=== PATIENT | female | born 1995 | race Hispanic/Latino ===

== ENCOUNTER 2018-08-26 14:23 | Emergency (ER) | payer OTHER ==
[~2018-08-26 14:23] MED LIST: FLEXERIL PO; NAPROSYN500 MG PO; NAPROXEN500 MG PO; NO
== END 2018-08-26 14:30 | disposition left against medical advice (07) | DRG 951 ==
LOC: ED 14:23 → LWOBS 14:29
DX: Z91.19 Patient's noncompliance with other medical treatment and regimen (principal)

== ENCOUNTER 2020-03-24 15:48 | Emergency (ER) | payer OTHER ==
[~2020-03-24] VITALS: Ht 160 cm; Wt 77.3 kg
[2020-03-24] MEDS ORDERED: TYLENOL500 MG PO (16:09)
[2020-03-24 16:56] LABS: HEMATOCRIT 38.1 % (37.0-47.0); HEMOGLOBIN 12.2 g/dl (12.0-16.0); NEUT# 2.01 thou/uL (2.00-7.15); RED BLOOD COUNT 4.07 mill/uL (4.20-5.60); RED CELL DISTRI WIDTH 12.8 % (11.5-15.5)
[2020-03-24 17:00] LABS: URINE BILIRUBIN - DIPSTICK NEGATIVE (NEGATIVE); URINE BLOOD DIPSTICK LARGE (NEGATIVE); URINE COLOR YELLOW; URINE GLUCOSE - DIPSTICK NEGATIVE (NEGATIVE); URINE KETONE NEGATIVE (NEGATIVE); URINE LEUK ESTERASE NEGATIVE (NEGATIVE); URINE NITRITE - DIPSTICK NEGATIVE (Negative); URINE PROTEIN - DIPSTICK NEGATIVE (NEG-TRACE); URINE SPECIFIC GRAVITY 1.025
[2020-03-24 17:02] LABS: MEAN CELL VOLUME 93.6 fL CALC (80.0-100.0)
[2020-03-24 17:10] LABS: URINE SQUAMOUS EPITHELIAL CELL FEW EPI/hpf (0-FEW); URINE WBC 0-2 WBC/hpf (0-5)
[2020-03-24 17:16] LABS: ALBUMIN 4.5 g/dL (3.2-5.0); ALKALINE PHOSPHATASE 81 u/l (38-126); ANION GAP 13 (6-22 (CALC)); BILIRUBIN, TOTAL 0.3 mg/dL (0.0-1.4); BUN 9 mg/dL (7-17); BUN/CREATININE RATIO 14 (12-20 (CALC)); CARBON DIOXIDE 27 mmol/l (22-30); CHLORIDE 105 mmol/l (95-108); CREATININE 0.6 mg/dL (0.5-1.0); GFR > 60 ML/MIN (>=60 (CALC)); GFR FOR AFR.AMER. > 60 ML/MIN (>=60 (CALC)); POTASSIUM 3.8 mmol/l (3.5-5.1); SGOT/AST 27 u/l (14-36); SODIUM 141 mmol/l (137-146)
[2020-03-24 18:36] VITALS: BP 155/76
--- NOTE | 2020-03-27 09:07 | NUR ---
Notified patient of positive Covid results. Patient denies difficulty breathing. Patient states she has already spoken with the [facility]. Advised patient to return to the ED with any difficulty breathing. Patient asked if she could take Mucinex and Motrin together. Advised her to consult with her pharmacist to check for any drug interactions. Patient verbalized understanding.
== END 2020-03-24 18:37 | disposition home or self-care (01) | DRG 179 ==
LOC: ED 15:48
PROVIDERS: Emergency Medicine
DX: U07.1 COVID-19 (principal); R19.7 Diarrhea, unspecified; R53.83 Other fatigue; R43.2 Parageusia; R43.0 Anosmia; M54.9 Dorsalgia, unspecified

== ENCOUNTER 2020-03-26 08:49 | Emergency (ER) | payer OTHER ==
[~2020-03-26] VITALS: Ht 160 cm; Wt 95.0 kg
[~2020-03-26 08:49] MED LIST changes: +TYLENOL500 MG PO
[2020-03-26 09:42] LABS: HEMATOCRIT 39.1 % (37.0-47.0); HEMOGLOBIN 12.6 g/dl (12.0-16.0); IMMATURE GRANULOCYTES 0.2 % (0.0-5.0); MEAN CELL VOLUME 92.7 fL CALC (80.0-100.0); MEAN CORPUSCULAR HGB 29.9 pG CALC (26.0-32.0); MEAN CORPUSCULAR HGB CONC 32.2 g/dL CAL (32.0-36.0); NEUT# 2.8 thou/uL (2.00-7.15); RED BLOOD COUNT 4.22 mill/uL (4.20-5.60); RED CELL DISTRI WIDTH 12.7 % (11.5-15.5)
[2020-03-26 10:02] LABS: ANION GAP 13 (6-22 (CALC)); BUN 6 mg/dL (7-17); BUN/CREATININE RATIO 12 (12-20 (CALC)); CARBON DIOXIDE 24 mmol/l (22-30); CHLORIDE 105 mmol/l (95-108); CREATININE 0.5 mg/dL (0.5-1.0); GFR > 60 ML/MIN (>=60 (CALC)); GFR FOR AFR.AMER. > 60 ML/MIN (>=60 (CALC)); SODIUM 138 mmol/l (137-146)
[2020-03-26 10:55] VITALS: BP 108/59
== END 2020-03-26 10:55 | disposition home or self-care (01) | DRG 179 ==
LOC: ED 08:49
PROVIDERS: Family Medicine
DX: U07.1 COVID-19 (principal); G62.9 Polyneuropathy, unspecified

== ENCOUNTER 2024-04-09 | Emergency (ER) | payer BC ==
[~2024-04-09] VITALS: Ht 160 cm; Wt 91.0 kg
[2024-04-09] MEDS ORDERED: SODIUM CHLORIDE 0.9% 1,000 ML IV STA (00:25)
[2024-04-09] MEDS ORDERED: PROMETHAZINE HCL 25 MG/ML AMP IV ONE (00:30)
[2024-04-09] MEDS ORDERED: KETOROLAC TROMETHAMINE 30 MG/ML SDV IV ONE (00:30)
[2024-04-09 00:45] LABS: BASO% 0.2 % (0-3); EOS% 1.2 % (0-8); HEMATOCRIT 37.2 % (37.0-47.0); HEMOGLOBIN 12.3 g/dl (12.0-16.0); IMMATURE GRANULOCYTES 0.2 % (0.0-5.0); LYMPH% 38.2 % (15-41); MEAN CELL VOLUME 94.7 fL CALC (80.0-100.0); MEAN CORPUSCULAR HGB 31.3 pG CALC (26.0-32.0); MEAN CORPUSCULAR HGB CONC 33.1 g/dL CAL (32.0-36.0); MONO% 5.8 % (2-13); NEUT# 5.83 thou/uL (2.00-7.15); NEUT% 54.4 % (42-76); RED BLOOD COUNT 3.93 mill/uL (4.20-5.60); RED CELL DISTRI WIDTH 12.4 % (11.5-15.5)
[2024-04-09 01:00] LABS: ALBUMIN 4.5 g/dL (3.2-5.0); CREATININE 0.8 mg/dL (0.5-1.0); POTASSIUM 3.8 mmol/l (3.5-5.1); TOTAL PROTEIN 7.8 g/dL (6.3-8.2)
[2024-04-09 01:12] LABS: BILIRUBIN, TOTAL 0.7 mg/dL (0.02-1.3)
[2024-04-09] MEDS ORDERED: DICYCLOMINE HYD10 MG PO (03:13)
[2024-04-09 04:24] VITALS: BP 112/65
== END 2024-04-09 04:25 | disposition home or self-care (01) | DRG 392 ==
LOC: ED
PROVIDERS: Family Medicine
DX: R10.31 Right lower quadrant pain (principal); R11.0 Nausea; R19.7 Diarrhea, unspecified
CPT/HCPCS: J2550; Q9967